=== PATIENT | female | born 1955 | race Caucasian/White ===

== ENCOUNTER 2020-01-09 05:53 | Day surgery (SDC) | payer SELFPAY ==
--- NOTE | 2020-01-08 09:33 | NUR ---
Abnormal EKG Informed Dr. Georges of abnormal EKG. Stated ok if no sob, nor chest pain.
[2020-01-08 12:32] VITALS: BP 158/82
[~2020-01-09] VITALS: Ht 154.9 cm; Wt 89.5 kg
[2020-01-09] VITALS (17 sets, daily range): BP systolic 110–144; BP diastolic 49–80
[~2020-01-09 05:53] MED LIST: ALPR1TAB7 PO; BUPR100T13 PO; FLUT16H NASAL; GABA600T10 PO; METF-444 PO; PROG200C11 PO; THYR60TA2 PO
[2020-01-09] MEDS ORDERED: LACTATED RINGERS 1000ML 0 ML IV ONE (06:16)
[2020-01-09] MEDS ORDERED: SODIUM CHLORIDE 0.9% 1000ML 1,000 ML IV ONE (06:18)
[2020-01-09] MEDS: CEFAZOLIN SODIUM 1 GM VIAL ONE ×2 (06:55→09:10)
[2020-01-09] MEDS ORDERED: LIDOCAINE PF 2% 5ML ABBOJECT ONE (08:07)
[2020-01-09] MEDS ORDERED: SUCCINYLCHOLINE CHLORIDE 20 MG/ML 10 ML VIAL ONE (08:07)
[2020-01-09] MEDS ORDERED: PROPOFOL 10 MG/ML 20ML VIAL IV ONE (08:08)
[2020-01-09] MEDS ORDERED: NEOSTIGMINE 5MG/5ML SYR IV ONE (08:09)
[2020-01-09] MEDS ORDERED: ONDANSETRON HCL 4 MG/2 ML VIAL ONE ×2 (08:09→11:58)
[2020-01-09] MEDS ORDERED: GLYCOPYRROLATE 1 MG/5 ML SYRINGE ONE (08:09)
[2020-01-09] MEDS ORDERED: MIDAZOLAM HCL 1 MG/ML 2ML VIAL ONE (08:09)
[2020-01-09] MEDS ORDERED: DEXAMETHASONE SOD PHOSPHATE 10MG/ML 1ML VIAL ONE ×2 (08:09→08:13)
[2020-01-09] MEDS ORDERED: ROCURONIUM 10MG/1ML SYR 10 MG/ML ML ONE (08:09)
[2020-01-09] MEDS ORDERED: FENTANYL CITRATE PF 50 MCG/1 ML 2ML VIAL ONE (08:10)
[2020-01-09] MEDS ORDERED: BUPIVACAINE/EPI/PF 0.25% 30ML VIAL IJ ONE (09:24)
[2020-01-09] MEDS ORDERED: FAMOTIDINE/PF 20 MG/2 ML VIAL IV ONE (09:41)
[2020-01-09] MEDS ORDERED: MEPERIDINE-PF 25 MG/ML SYG ONE ×2 (11:37→11:52)
--- NOTE | 2020-01-09 11:55 | NUR ---
12.5mg of Demerol given slow IVP for right elbow pain
== END 2020-01-09 13:30 | disposition home or self-care (01) ==
LOC: DAH 05:53
PROVIDERS: ATTEND Neurological Surgery
DX: G56.21 Lesion of ulnar nerve, right upper limb (principal); I25.2 Old myocardial infarction; I10 Essential (primary) hypertension; E11.9 Type 2 diabetes mellitus without complications; J44.9 Chronic obstructive pulmonary disease, unspecified; K21.9 Gastro-esophageal reflux disease without esophagitis; E66.01 Morbid (severe) obesity due to excess calories; Z88.8 Allergy status to other drugs, medicaments and biological substances; Z79.84 Long term (current) use of oral hypoglycemic drugs; Z79.899 Other long term (current) drug therapy; Z20.828 Contact with and (suspected) exposure to other viral communicable diseases
CPT/HCPCS: 24120; 36415; 64718; 71045; 80051; 82948; 85025; 93005; A4213; A4215; A4221; A4649 ×2; A4663; A6260; C1713; C9803; J0330; J0690; J1100 ×2; J2001; J2175 ×2; J2250; J2405 ×2; J2704; J2710; J3010; J3490 ×3; J7030; U0003; J7120